=== PATIENT | male | born 1990 | race Caucasian/White ===

== ENCOUNTER 2023-07-28 03:42 | Emergency (ER) | payer OTHER ==
[2023-07-28 04:03] VITALS: BP 145/103; PULSE 115; RESP 20; TEMP 98.1
--- NOTE | 2023-07-28 04:05 | ED ---
Wound/Laceration HPI - General Chief Complaint: Wound/Laceration Stated Complaint: Chin Laceration Time Seen by Provider: 07/28/23 04:04 Source: police Mode of arrival: ambulatory Limitations: no limitations - History of Present Illness Initial Comments: This patient is 33-year-old man who presents to evaluation of laceration to the chin. Patient states that he had rolled out of the bunk at the assisted where he is currently staying. He struck his chin resulting in laceration. The patient states that his last tetanus shot was probably less than 10 years ago. He denies aches and pains. No other injury. -: hour(s) Location: face Place: other Patient Tetanus UTD: Yes Context: accidental, fall Associated Symptoms: none Treatments Prior to Arrival: bandage - Related Data Previous Rx's Medication Instructions Recorded Thiamine [Vitamin B-1] 100 mg PO DAILY #90 tab 08/01/23 Allergies Allergy/AdvReac Type Severity Reaction Status Date / Time No Known Allergies Allergy Verified 07/31/23 19:43 Review of Systems ROS Statement: Those systems with pertinent positive or pertinent negative responses have been documented in the HPI. ROS Other: All systems not noted in ROS Statement are negative. Respiratory: Denies: dyspnea Cardiovascular: Denies: chest pain Gastrointestinal: Denies: abdominal pain Skin: Reports: as per HPI Neurological: Denies: headache Hematological/Lymphatic: Denies: easy bleeding Past Medical History Past Medical History: No Reported History History of Any Multi-Drug Resistant Organisms: None Reported Past Surgical History: No Surgical Hx Reported Past Psychological History: No Psychological Hx Reported Smoking Status: Never smoker Past Alcohol Use History: Occasional Past Drug Use History: None Reported General Exam Limitations: no limitations General appearance: alert, in no apparent distress Head exam: Present: atraumatic, normocephalic Eye exam: Present: normal appearance, PERRL, EOMI. Absent: scleral icterus, conjunctival injection ENT exam: Present: normal oropharynx Neck exam: Present: normal inspection, full ROM. Absent: tenderness Neurological exam: Present: alert, oriented X3 Skin exam: Present: warm, dry, normal color, other (The patient has approximately 2 cm laceration to the underside of the chin to the right of midline. No foreign body.) Course Vital Signs 07/28/23 03:43 Temperature 98.1 F Pulse Rate 115 H Respiratory 20 Rate Blood Pressure 145/103 O2 Sat by Pulse 96 Oximetry Procedures - Laceration Laceration #1 Consent Obtained: verbal consent Indication: laceration Site: face Size (cm): 2 Description: flap Depth: simple, single layer Anesthetic Used: lidocaine 1% Anesthesia Technique: local infiltration Amount (mls): 2 Type of Sutures: nylon Size of Sutures: 6-0 Number of Sutures: 3 Technique: simple, interrupted Patient Tolerated Procedure: well, no complications Medical Decision Making - Medical Decision Making Was pt. sent in by a medical professional or institution (, PA, ADJUNCT INSTRUCTOR, urgent care, hospital, or snf...) When possible be specific @ -[No] Did you speak to anyone other than the patient for history (EMS, parent, family, police, friend...)? What history was obtained from this source @ -[No] Did you review nursing and triage notes (agree or disagree)? Why? @ -[I reviewed and agree with nursing and triage notes] Were old charts reviewed (outside hosp., previous admission, EMS record, old EKG, old radiological studies, urgent care reports/EKG's, snf records)? Report findings @ -[No old charts were reviewed] Differential Diagnosis (chest pain, altered mental status, abdominal pain women, abdominal pain men, vaginal bleeding, weakness, fever, dyspnea, syncope, headache, dizziness, GI bleed, back pain, seizure, CVA, palpatations, mental health, musculoskeletal)? @ -[Differential Musculoskeletal Muscular strain, contusion, ligament sprain, fracture, arthritis, septic arthritis, bursitis, cellulitis, muscle spasm, nerve compression, DVT, arterial occlusion, herpes zoster, electrolyte abnormality, tumor.... This is not meant to be in all inclusive list EKG interpreted by me (3pts min.). @ -[As above] X-rays interpreted by me (1pt min.). @ -[None done] CT interpreted by me (1pt min.). @ -[None done] U/S interpreted by me (1pt. min.). @ -[None done] What testing was considered but not performed or refused? (CT, X-rays, U/S, labs)? Why? @ -[None] What meds were considered but not given or refused? Why? @ -[None] Did you discuss the management of the patient with other professionals (professionals i.e. , PA, ADJUNCT INSTRUCTOR, lab, RT, psych nurse, sexual assault social worker, wire rope sales representative, teacher, foreign service officer, manager case management)? Give summary @ -[No] Was smoking cessation discussed for >3mins.? @ -[No] Was critical care preformed (if so, how long)? @ -[No] Were there social determinants of health that impacted care today? How? (Homelessness, low income, unemployed, alcoholism, drug addiction, transportation, low edu. Level, literacy, decrease access to med. care, assisted, rehab)? @ -[No] Was there de-escalation of care discussed even if they declined (Discuss DNR or withdrawal of care, Hospice)? DNR status @ -[No] What co-morbidities impacted this encounter? (DM, HTN, Smoking, COPD, CAD, Cancer, CVA, ARF, Chemo, Hep., AIDS, mental health diagnosis, sleep apnea, morbid obesity)? @ -[None] Was patient admitted / discharged? Hospital course, mention meds given and route, prescriptions, significant lab abnormalities, going to OR and other pertinent info. @ -[hospital course] Undiagnosed new problem with uncertain prognosis? @ -[No] Drug Therapy requiring intensive monitoring for toxicity (Heparin, Nitro, Insulin, Cardizem)? @ -[No] Were any procedures done? @ -[Laceration repair as above Diagnosis/symptom? @ -[Acute chin laceration with suture repair Minor head trauma Hypertension Acute, or Chronic, or Acute on Chronic? @ -[Acute Uncomplicated (without systemic symptoms) or Complicated (systemic symptoms)? @ -[Uncomplicated Side effects of treatment? @ -[No] Exacerbation, Progression, or Severe Exacerbation? @ -[No] Poses a threat to life or bodily function? How? (Chest pain, [place], [place], pneumonia, PE, COPD, DKA, ARF, appy, cholecystitis, CVA, Diverticulitis, Homicidal, Suicidal, threat to staff... and all critical care pts) @ -[No] Disposition Clinical Impression: Laceration, Hypertension, Minor head trauma Disposition: HOME SELF-CARE Condition: Stable Instructions (If sedation given, give patient instructions): Laceration (ED), Hypertension (ED) Additional Instructions: Suture removal in 7 to 10 days Is patient prescribed a controlled substance at d/c from ED?: No Referrals: [facility],Clinic [Primary Care Provider] - 1-2 days
[2023-07-28] MEDS: BACITRACIN OINT 1 EACH PACKET TOPICAL ONE (04:42)
== END 2023-07-28 05:36 | disposition home or self-care (01) ==
LOC: EC 03:42
DX: S01.81XA Laceration without foreign body of other part of head, initial encounter (principal); I10 Essential (primary) hypertension; W17.89XA Other fall from one level to another, initial encounter; Y92.149 Unspecified place in prison as the place of occurrence of the external cause
CPT/HCPCS: 12011; 99282

== ENCOUNTER 2023-07-31 15:07 | Inpatient (IN) | payer OTHER ==
[2023-07-31] MEDS ORDERED: LORazepam 1 MG TAB PO PRN ×3 (16:15)
[2023-07-31] MEDS ORDERED: LORazepam 0.5 MG TAB PO PRN (16:15)
--- NOTE | 2023-07-31 16:41 | ED ---
Alcohol HPI - General Chief Complaint: Alcohol Stated Complaint: Withdraws Time Seen by Provider: 07/31/23 16:38 Source: patient, RN notes reviewed Mode of arrival: ambulatory Limitations: no limitations - History of Present Illness Initial Comments: Patient is a 33-year-old male presented to ER with a chief complaint of alcohol withdrawals. Family, at bedside, providing most of past medical history and HPI. They report he has been drinking 7-10 beers a day for the past 7 to 9 years. He reports his last drink was about 4 days ago. Denies any history of seizures or DTs with withdrawals. Patient is also reporting hallucinations and difficulty sleeping. Denies any SI or HI. Family states they are worried he could have a possible seizure at home and would like him to be evaluated. Denies any fevers, chills, nausea/vomiting, chest pain, shortness of breath, abdominal pain, constipation, diarrhea, urinary symptoms, peripheral edema. - Related Data Home Medications Medication Instructions Recorded Confirmed No Known Home Medications 07/31/23 07/31/23 Allergies Allergy/AdvReac Type Severity Reaction Status Date / Time No Known Allergies Allergy Verified 07/31/23 19:43 Review of Systems ROS Statement: Those systems with pertinent positive or pertinent negative responses have been documented in the HPI. ROS Other: All systems not noted in ROS Statement are negative. Past Medical History Past Medical History: No Reported History History of Any Multi-Drug Resistant Organisms: None Reported Past Surgical History: No Surgical Hx Reported Past Psychological History: No Psychological Hx Reported Smoking Status: Never smoker Past Alcohol Use History: Daily Past Drug Use History: None Reported General Exam Limitations: no limitations General appearance: alert, in no apparent distress, anxious, other (patient pacing room when provider entered) Head exam: Present: atraumatic, normocephalic, normal inspection Eye exam: Present: normal appearance, PERRL, EOMI. Absent: scleral icterus, conjunctival injection, periorbital swelling Respiratory exam: Present: normal lung sounds bilaterally. Absent: respiratory distress, wheezes, rales, rhonchi, stridor Cardiovascular Exam: Present: regular rate, normal rhythm, normal heart sounds. Absent: systolic murmur, diastolic murmur, rubs, gallop, clicks GI/Abdominal exam: Present: soft, normal bowel sounds. Absent: distended, tenderness, guarding, rebound, rigid Neurological exam: Present: alert, oriented X3, CN II-XII intact, other (Mild tremor) Psychiatric exam: Present: anxious Skin exam: Present: warm, dry, intact, normal color. Absent: rash Course Vital Signs 07/31/23 15:11 Temperature 98.1 F Pulse Rate 63 Respiratory 18 Rate Blood Pressure 141/90 O2 Sat by Pulse 99 Oximetry - Reevaluation(s) Reevaluation #1: 07/31/23 19:[address] Norman who accepted medical management. She also reported patient should be admitted inpatient. Medical Decision Making - Medical Decision Making Was pt. sent in by a medical professional or institution (, PA, COMMUNITY SERVICES MANAGER, urgent care, hospital, or fdc...) When possible be specific @ -No Did you speak to anyone other than the patient for history (EMS, parent, family, police, friend...)? What history was obtained from this source @ -Mother providing past medical history Did you review nursing and triage notes (agree or disagree)? Why? @ -I reviewed and agree with nursing and triage notes Were old charts reviewed (outside hosp., previous admission, EMS record, old EKG, old radiological studies, urgent care reports/EKG's, fdc records)? Report findings @ -No old charts were reviewed Differential Diagnosis (chest pain, altered mental status, abdominal pain women, abdominal pain men, vaginal bleeding, weakness, fever, dyspnea, syncope, headache, dizziness, GI bleed, back pain, seizure, CVA, palpatations, mental health, musculoskeletal)? @ -Differential Seizure:Recurrent seizure disorder, febrile seizure, alcohol withdrawal, stimulants, meningitis, encephalitis, intercranial hemorrhage, intracranial tumor, stroke, eclampsia, thyrotoxicosis, hypocalcemia, hyponatremia, hypernatremia, hypomagnesemia, psychogenic, this is not meant to be an all-inclusive list. EKG interpreted by me (3pts min.). @ -As above X-rays interpreted by me (1pt min.). @ -None done CT interpreted by me (1pt min.). @ -None done U/S interpreted by me (1pt. min.). @ -None done What testing was considered but not performed or refused? (CT, X-rays, U/S, labs)? Why? @ -None What meds were considered but not given or refused? Why? @ -None Did you discuss the management of the patient with other professionals (professionals i.e. , LEI, COMMUNITY SERVICES MANAGER, lab, RT, psych nurse, social science research assistant, online communications manager, teacher, global safety officer, piano case and bench assembler)? Give summary @ -Yes, I discussed his case with Dr. Norman, artis physician, who accepted medical management. Patient will be admitted inpatient. Was smoking cessation discussed for >3mins.? @ -No Was critical care preformed (if so, how long)? @ -No Were there social determinants of health that impacted care today? How? (Homelessness, low income, unemployed, alcoholism, drug addiction, transportation, low edu. Level, literacy, decrease access to med. care, snf, rehab)? @ -Alcoholism, Was there de-escalation of care discussed even if they declined (Discuss DNR or withdrawal of care, Hospice)? DNR status @ -No What co-morbidities impacted this encounter? (DM, HTN, Smoking, COPD, CAD, Cancer, CVA, ARF, Chemo, Hep., AIDS, mental health diagnosis, sleep apnea, morbid obesity)? @ -Alcoholism, mental health Was patient admitted / discharged? Hospital course, mention meds given and route, prescriptions, significant lab abnormalities, going to OR and other pertinent info. @ -Admitted. Patient is a 33 year old male presenting to the ER with a chief complaint of alcohol withdrawal. Patient stopped drinking 4 days ago he was consuming 7-10 beers for the past 7-9 years. History and physical exam were completed. Vitals stable. Patient was in no signs of acute distress. Patient was pacing in exam room on exam and was mildly shaking. Patient without history of seizures or DTs. Labs obtained in the ER unimpressive. Urinalysis without signs of infection. Urine drug screen negative. Serum alcohol less than 10. CIWA protocol started. Patient given PO thiamine and IV fluids. EKG without signs of acute infarct or ischemia. Due to patient's CIWA at 14 patient received 2 mg Ativan. Admission was considered due to CIWA of 14. Case discussed with artis Little physician, who excepted medical management. Patient will be admitted inpatient. Plan discussed with patient and family who are in agreement with admission. Undiagnosed new problem with uncertain prognosis? @ -No Drug Therapy requiring intensive monitoring for toxicity (Heparin, Nitro, Insulin, Cardizem)? @ -No Were any procedures done? @ -No Diagnosis/symptom? @ -Alcohol withdrawal Acute, or Chronic, or Acute on Chronic? @ -Acute Uncomplicated (without systemic symptoms) or Complicated (systemic symptoms)? @ -Complicated Side effects of treatment? @ -No Exacerbation, Progression, or Severe Exacerbation? @ -No Poses a threat to life or bodily function? How? (Chest pain, [place], [place], pneumonia, PE, COPD, DKA, ARF, appy, cholecystitis, CVA, Diverticulitis, Homicidal, Suicidal, threat to staff... and all critical care pts) @ -Yes, alcohol withdrawal can lead to seizures which can be life-threatening. - Lab Data Result diagrams: 07/31/23 17:03 07/31/23 17:03 Lab Results 07/31/23 07/31/23 07/31/23 Range/Units 17:03 17:03 17:03 WBC 8.9 (3.8-10.6) k/uL RBC 5.23 (4.30-5.90) m/uL Hgb 17.0 (13.0-17.5) gm/dL Hct 49.5 (39.0-53.0) % MCV 94.7 (80.0-100.0) fL MCH 32.5 (25.0-35.0) pg MCHC 34.3 (31.0-37.0) g/dL RDW 12.3 (11.5-15.5) % Plt Count 274 (150-450) k/uL MPV 7.8 Sodium 140 (137-145) mmol/L Potassium 3.5 (3.5-5.1) mmol/L Chloride 99 (98-107) mmol/L Carbon Dioxide 29 (22-30) mmol/L Anion Gap 12 mmol/L BUN 13 (9-20) mg/dL Creatinine 0.90 (0.66-1.25) mg/dL Est GFR (CKD-EPI)AfAm >90 (>60 ml/min/1.73 sqM) Est GFR (CKD-EPI)NonAf >90 (>60 ml/min/1.73 sqM) Glucose 108 H (74-99) mg/dL Calcium 10.1 (8.4-10.2) mg/dL Phosphorus 4.5 (2.5-4.5) mg/dL Magnesium 2.2 (1.6-2.3) mg/dL Total Bilirubin 3.0 H (0.2-1.3) mg/dL AST 44 (17-59) U/L ALT 47 (4-49) U/L Alkaline Phosphatase 75 (38-126) U/L Total Protein 8.2 (6.3-8.2) g/dL Albumin 5.2 H (3.5-5.0) g/dL Urine Color Yellow Urine Appearance Cloudy (Clear) Urine pH 5.5 (5.0-8.0) Ur Specific [place] 1.034 (1.001-1.035) Urine Protein Trace H (Negative) Urine Glucose (UA) Negative (Negative) Urine Ketones Negative (Negative) Urine Blood Negative (Negative) Urine Nitrite Negative (Negative) Urine Bilirubin Negative (Negative) Urine Urobilinogen 2.0 (<2.0) mg/dL Ur Leukocyte Esterase Moderate H (Negative) Urine RBC 1 (0-5) /hpf Urine WBC 25 H (0-5) /hpf Ur Squamous Epith Cells 1 (0-4) /hpf Urine Mucus Few H (None) /hpf Urine Opiates Screen Not Detected (NotDetected) Ur Oxycodone Screen Not Detected (NotDetected) Urine Methadone Screen Not Detected (NotDetected) Ur Barbiturates Screen Not Detected (NotDetected) U Tricyclic Antidepress Not Detected (NotDetected) Ur Phencyclidine Scrn Not Detected (NotDetected) Ur Amphetamines Screen Not Detected (NotDetected) U Methamphetamines Scrn Not Detected (NotDetected) U Benzodiazepines Scrn Not Detected (NotDetected) Urine Cocaine Screen Not Detected (NotDetected) U Marijuana (THC) Screen Not Detected (NotDetected) Serum Alcohol <10 mg/dL - EKG Data -: EKG Interpreted by Me EKG Comments: EKG taken at 17: 22 shows a normal sinus rhythm. No acute ST segment or T wave abnormalities. There is artifact present in leads I, II, III. Ventricular rate 62, CA interval 131, QRS duration 95, QT/QTc 414/419. Disposition Clinical Impression: Alcohol withdrawal Disposition: ADMITTED IP TO THIS [facility] Time of Disposition: 18:10
[2023-07-31 17:12] LABS: HCT 49.5 % (39.0-53.0); MCH 32.5 pg (25.0-35.0); MCHC 34.3 g/dL (31.0-37.0); MCV 94.7 fL (80.0-100.0); Mean Platelet Volume 7.8; Platelet Count 274 k/uL (150-450); RBC 5.23 m/uL (4.30-5.90); RDW 12.3 % (11.5-15.5); WBC 8.9 k/uL (3.8-10.6)
[2023-07-31] MEDS: LORazepam 1 MG TAB PO PRN (17:12)
[2023-07-31] MEDS: SODIUM CHLORIDE 0.9% 1,000 ML IV STA (17:12)
[2023-07-31 17:26] LABS: ALT 47 U/L (4-49); AST 44 U/L (17-59); African American GFR (CKD) >90 (>60 ml/min/1.73 sqM); Albumin 5.2 g/dL (3.5-5.0); Alcohol <10 mg/dL; Alkaline Phosphatase 75 U/L (38-126); Anion Gap 12 mmol/L; Blood Urea Nitrogen 13 mg/dL (9-20); Calcium 10.1 mg/dL (8.4-10.2); Carbon Dioxide 29 mmol/L (22-30); Chloride 99 mmol/L (98-107); Glucose 108 mg/dL (74-99); Magnesium 2.2 mg/dL (1.6-2.3); Non-African American GFR(CKD) >90 (>60 ml/min/1.73 sqM); Phosphorus 4.5 mg/dL (2.5-4.5); Potassium 3.5 mmol/L (3.5-5.1); Sodium 140 mmol/L (137-145); Total Protein 8.2 g/dL (6.3-8.2)
[2023-07-31 17:27] LABS: Appearance,Urine Cloudy (Clear); Bilirubin,Urine Negative (Negative); Blood,Urine Negative (Negative); Color,Urine Yellow; Glucose,Urine (UA) Negative (Negative); Ketones,Urine Negative (Negative); Leukocyte Esterase,Urine Moderate (Negative); Mucus,Urine Few /hpf; Nitrite,Urine Negative (Negative); PH, Urine 5.5 (5.0-8.0); Protein,Urine Trace (Negative); RBC,Urine 1 /hpf (0-5); Specific Gravity,Urine 1.034 (1.001-1.035); Squamous Epithelial Cell,Urine 1 /hpf (0-4); WBC,Urine 25 /hpf (0-5)
[2023-07-31 17:37] LABS: Amphetamine Screen,Urine Not Detected (NotDetected); Barbiturate Screen,Urine Not Detected (NotDetected); Benzodiazepines Screen,Urine Not Detected (NotDetected); Cocaine Screen,Urine Not Detected (NotDetected); Methadone Screen, Urine Not Detected (NotDetected); Opiate Screen,Urine Not Detected (NotDetected); Oxycodone Screen, Urine Not Detected (NotDetected); Phencyclidine Screen,Urine Not Detected (NotDetected); Tricyclic Antidepressant,Urine Not Detected (NotDetected); Urn Cannabinoid Scrn Not Detected (NotDetected)
[2023-07-31] MEDS ORDERED: LORazepam 2 MG/ML INJ IV PRN ×2 (17:38→17:40)
[2023-07-31] MEDS: THIAMINE 100 MG/ML 2 ML VIAL IM STA (18:00)
[2023-07-31] MEDS ORDERED: ACETAMINOPHEN TAB 325 MG TAB PO PRN (18:09)
[2023-07-31] MEDS ORDERED: NALOXONE 0.4 MG/ML 1 ML VIAL IV PRN (18:09)
[2023-07-31] MEDS: SODIUM CHLORIDE 0.9% 1,000 ML IV SCH (19:33)
[2023-07-31 20:55] VITALS: RESP 16
[2023-07-31] MEDS: LORazepam 2 MG/ML INJ IV PRN (22:52)
--- NOTE | 2023-07-31 22:58 | P.HPIM ---
History of Present Illness H&P Date: 07/31/23 Patient is a 33-year-old male with a PMH of alcohol abuse and DTs who presents to the emergency room brought in by family members for alcohol withdrawal. The history was supplemented from the chart as the patient was somewhat confused at the time of interview. The patient's family had reported that he has been drinking 7-10 beers daily for the past 9 years. He had reportedly been trying to cut down and that his last drink was 4 days ago. He was reported to be hallucinating, having difficulty sleeping, and that the family was worried he could develop seizures. The patient reports that he previously had DTs with withdrawals several years ago but does not recall the specifics. He reported feeling somewhat shaky at the time of interview but had no additional complaints. Denied experiencing chest discomfort, shortness of breath, fever, chills, cough, nausea, vomiting, abdominal pain, diarrhea. EKG in the emergency room revealed sinus rhythm at [address]/T wave changes noted as reviewed by me. Laboratory evaluation revealed a serum alcohol level less than 10 with UA unremarkable, glucose 108, total bilirubin 3.0, albumin 5.2, WBC count 8.9, hemoglobin 17.0. ED documentation reviewed and case discussed with ED provider. Review of systems: Pertinent positives and negatives as discussed in HPI, a complete review of systems was performed and all other systems are negative. Physical examination: Vital signs reviewed General: non toxic tremulous male, no distress, appears at stated age, normal weight Derm: no unusual rashes/lesions, warm Head: atraumatic, normocephalic, symmetric Eyes: EOMI, no lid lag, anicteric sclera, pupils equal round reactive to light ENT: Nose and ears atraumatic Neck: No cervical lymphadenopathy, trachea midline, supple Mouth: no lip lesion, mucus membranes moist, tongue fasciculations Cardiovascular: S1S2 reg, no murmur, positive dorsalis pedis pulse bilateral, no edema Lungs: CTA bilateral, no rhonchi, no rales, no accessory muscle use Abdominal: soft, nontender to palpation, no guarding Ext: muscle strength 5 out of 5 in all 4 extremities grossly, no gross muscle atrophy, no contractures, Neuro: CN II-XI grossly intact, no gross focal neuro deficits, tremulous with outstretched hand tremor Psych: Alert, oriented to person and place only, not fully oriented to time Assessment: Alcohol withdrawal Imaging: EKG in the emergency room revealed sinus rhythm at [address]/T wave changes noted as reviewed by me. Data Review: Laboratory evaluation revealed a serum alcohol level less than 10 with UA unremarkable, glucose 108, total bilirubin 3.0, albumin 5.2, WBC count 8.9, hemoglobin 17.0. Plan: Ativan as needed with CIWA protocol Continue with thiamine IV fluids with normal saline 75 cc/h Cardiac monitoring Fall precautions DVT prophylaxis: Lovenox subcu The patient is admitted with an anticipated greater than 2 midnight stay for evaluation of alcohol withdrawal CODE STATUS: Full Code Discussed with: Patient Anticipated discharge place: Home Past Medical History Past Medical History: No Reported History History of Any Multi-Drug Resistant Organisms: None Reported Past Surgical History: No Surgical Hx Reported Additional Past Surgical History / Comment(s): Patient states he broke collar bone as a child. Past Anesthesia/Blood Transfusion Reactions: Unable to Obtain Past Psychological History: ADD/ADHD, Anxiety, Depression Smoking Status: Former smoker Past Alcohol Use History: Daily Additional Past Alcohol Use History / Comment(s): 7 beers daily for 2 weeks. Past Drug Use History: None Reported - Past Family History Mother Family Medical History: COPD Medications and Allergies Home Medications Medication Instructions Recorded Confirmed Type No Known Home Medications 07/31/23 07/31/23 History Allergies Allergy/AdvReac Type Severity Reaction Status Date / Time No Known Allergies Allergy Verified 07/31/23 19:43 Physical Exam Vitals: Vital Signs Temp Pulse Pulse Resp BP BP Pulse Ox 07/31/23 21:21 98.2 F 76 16 119/78 100 07/31/23 20:40 98.4 F 70 16 129/79 100 07/31/23 15:11 98.1 F 63 18 141/90 99 Intake and Output 07/31/23 07/31/23 07/31/23 06:59 14:59 22:59 Other: Weight 74.843 kg Results CBC & Chem 7: 07/31/23 17:03 07/31/23 17:03 Labs: Abnormal Lab Results - Last 24 Hours (Table) 07/31/23 07/31/23 Range/Units 17:03 17:03 Glucose 108 H (74-99) mg/dL Total Bilirubin 3.0 H (0.2-1.3) mg/dL Albumin 5.2 H (3.5-5.0) g/dL Urine Protein Trace H (Negative) Ur Leukocyte Esterase Moderate H (Negative) Urine WBC 25 H (0-5) /hpf Urine Mucus Few H (None) /hpf
[2023-08-01 07:03] LABS: HCT 41.3 % (39.0-53.0); HGB 14.1 gm/dL (13.0-17.5); MCH 32.7 pg (25.0-35.0); MCHC 34.2 g/dL (31.0-37.0); MCV 95.4 fL (80.0-100.0); Mean Platelet Volume 7.8; Platelet Count 217 k/uL (150-450); RBC 4.33 m/uL (4.30-5.90); RDW 12.2 % (11.5-15.5); WBC 5.4 k/uL (3.8-10.6)
[2023-08-01 07:35] LABS: African American GFR (CKD) >90 (>60 ml/min/1.73 sqM); Anion Gap 4 mmol/L; Blood Urea Nitrogen 10 mg/dL (9-20); Calcium 8.7 mg/dL (8.4-10.2); Carbon Dioxide 27 mmol/L (22-30); Chloride 107 mmol/L (98-107); Glucose 98 mg/dL (74-99); Non-African American GFR(CKD) >90 (>60 ml/min/1.73 sqM); Potassium 4.1 mmol/L (3.5-5.1); Sodium 138 mmol/L (137-145)
[2023-08-01 07:48] VITALS: BP 113/77; PULSE 66; TEMP 97.5
[2023-08-01] MEDS: ENOXAPARIN 40 MG/0.4 ML SYRINGE SQ SCH (08:23)
[2023-08-01] MEDS: THIAMINE 100 MG TAB PO SCH (08:23)
[2023-08-01 08:51] VITALS: BMI 21.7
--- NOTE | 2023-08-01 11:18 | P.DS ---
Providers Date of admission: 07/31/23 18:13 Expected date of discharge: 08/01/23 Attending physician: Clarisa Butt DO Primary care physician: [facility] Hospital Course: Discharge Diagnosis: Alcohol dependence Alcohol withdrawal Hospital Course: 33-year-old male with a PMH of alcohol abuse and DTs who presents to the emergency room brought in by family members for alcohol withdrawal. EKG in the emergency room revealed sinus rhythm at [address]/T wave changes. Laboratory evaluation revealed a serum alcohol level less than 10 with UA unremarkable, glucose 108, total bilirubin 3.0, albumin 5.2, WBC count 8.9, hemoglobin 17.0. He drinks about 5-6 beers daily. According to him, he has been drinking daily for the last 2 years. He has not been to any alcoholic rehab before. He is planning on calling one of the outpatient alcohol rehab places. He will follow-up with his PCP. Patient seen and examined at bedside. Vital signs reviewed and stable. General: Nontoxic, no distress, appears at stated age Derm: Warm, dry Head: Atraumatic, normocephalic, symmetric Eyes: EOMI, no lid lag, anicteric sclera Mouth: No lip lesion, mucus membranes moist Cardiovascular: S1S2 reg, no murmur Lungs: CTA bilateral, no rhonchi, no rales, no accessory muscle use Abdominal: Soft, nontender to palpation, no guarding, no appreciable organomegaly Ext: No gross muscle atrophy, no edema, no contractures Neuro: CN II-XI grossly intact, no focal neuro deficits Psych: Alert, oriented, appropriate affect A total of 33 minutes of time were spent preparing this complex discharge summary. Patient was discharged on 08/01/23 at 1020. . Patient Condition at Discharge: Stable Plan - Discharge Summary Discharge Rx Participant: Yes New Discharge Prescriptions: New Thiamine [Vitamin B-1] 100 mg PO DAILY #90 tab Discharge Medication List Thiamine [Vitamin B-1] 100 mg PO DAILY #90 tab 08/01/23 [Rx] Follow up Appointment(s)/Referral(s): [facility],Clinic [Primary Care Provider] - 1-2 days (Please make follow up appointment.) Patient Instructions/Handouts: Alcohol Withdrawal (DC), Alcohol Dependence (ED) Activity/Diet/Wound Care/Special Instructions: Please see your PCP. Discharge/Stand Alone Forms: AA Meetings [facility], Who Do I Call?, Community Resources, Outpatient Counseling, In Substance Abuse Facilities Discharge Disposition: HOME SELF-CARE
== END 2023-08-01 11:34 | disposition home or self-care (01) | DRG 897 ==
LOC: EC 15:07 → 5NMEDONC 18:13
PROVIDERS: ADMIT Internal Medicine; ATTEND Internal Medicine
DX: F10.231 Alcohol dependence with withdrawal delirium (principal); F32.A Depression, unspecified; Y90.0 Blood alcohol level of less than 20 mg/100 ml; F41.9 Anxiety disorder, unspecified; F90.9 Attention-deficit hyperactivity disorder, unspecified type; G47.9 Sleep disorder, unspecified; Z71.41 Alcohol abuse counseling and surveillance of alcoholic; Z87.891 Personal history of nicotine dependence
CPT/HCPCS: 36415; 80048; 80053; 80306; 80320; 81001; 83735; 84100; 85027; 87086; 93005

== ENCOUNTER 2025-01-15 10:36 | Emergency (ER) | payer OTHER ==
--- NOTE | 2025-01-15 11:08 | ED ---
General Adult HPI - General Chief complaint: Psychiatric Symptoms Stated complaint: Mental health eval Time Seen by Provider: 01/15/25 10:48 Source: patient, family, RN notes reviewed Mode of arrival: ambulatory Limitations: no limitations - History of Present Illness Initial comments: Patient is a 34-year-old male presenting to the emergency department with psychiatric concerns over the past couple of days. Patient is having some racing thoughts. Patient is not sleeping. Patient is hearing his brother's voice through speakers. Patient is concerned his phone is tapped. Patient did have similar symptoms with alcohol withdrawal. Around 18 months ago however. No other similar symptoms. Patient denies any recent alcohol use. No suicidal or homicidal thoughts. - Related Data Previous Rx's Medication Instructions Recorded Thiamine [Vitamin B-1] 100 mg PO DAILY #90 tab 08/01/23 hydrOXYzine pamoate [Vistaril] 50 mg PO HS #10 capsule 01/15/25 Allergies Allergy/AdvReac Type Severity Reaction Status Date / Time No Known Allergies Allergy Verified 01/15/25 10:46 Review of Systems ROS Statement: Those systems with pertinent positive or pertinent negative responses have been documented in the HPI. ROS Other: All systems not noted in ROS Statement are negative. Constitutional: Denies: fever Eyes: Denies: eye pain Respiratory: Denies: dyspnea Cardiovascular: Reports: palpitations Musculoskeletal: Denies: back pain Psychiatric: Reports: as per HPI, auditory hallucinations. Denies: visual hallucinations, homicidal thoughts, suicidal thoughts Past Medical History Past Medical History: No Reported History History of Any Multi-Drug Resistant Organisms: None Reported Past Surgical History: No Surgical Hx Reported Additional Past Surgical History / Comment(s): Patient states he broke collar bone as a child. Past Anesthesia/Blood Transfusion Reactions: Unable to Obtain Past Psychological History: ADD/ADHD, Anxiety, Depression Smoking Status: Former smoker Past Alcohol Use History: Daily Past Drug Use History: None Reported - Past Family History Mother Family Medical History: COPD General Exam Limitations: no limitations General appearance: alert Head exam: Present: normocephalic Eye exam: Present: normal appearance Neck exam: Present: normal inspection Respiratory exam: Present: normal lung sounds bilaterally Cardiovascular Exam: Present: regular rate, normal rhythm GI/Abdominal exam: Present: soft. Absent: tenderness Extremities exam: Present: normal inspection Neurological exam: Present: alert Psychiatric exam: Present: anxious Skin exam: Present: normal color Course Vital Signs 01/15/25 10:42 Temperature 97.8 F Pulse Rate 91 Respiratory 18 Rate Blood Pressure 104/71 O2 Sat by Pulse 98 Oximetry Medical Decision Making - Medical Decision Making Was pt. sent in by a medical professional or institution (, [facility], STORAGE AND BACKUP ADMINISTRATOR, urgent care, hospital, or prison...) When possible be specific @ -No Did you speak to anyone other than the patient for history (EMS, parent, family, police, friend...)? What history was obtained from this source @ -Aunt is present helps provide history including patient's symptoms and onset Did you review nursing and triage notes (agree or disagree)? Why? @ -I reviewed and agree with nursing and triage notes Were old charts reviewed (outside hosp., previous admission, EMS record, old EKG, old radiological studies, urgent care reports/EKG's, prison records)? Report findings @ -No old charts were reviewed Differential Diagnosis (chest pain, altered mental status, abdominal pain women, abdominal pain men, vaginal bleeding, weakness, fever, dyspnea, syncope, headache, dizziness, GI bleed, back pain, seizure, CVA, palpatations, mental h ealth, musculoskeletal)? @ -Differential Mental Health Depression, anxiety, bipolar, psychosis, schizophrenia, borderline personality, situational depression, adjustment disorder, behavioral disorder, brain tumor, malingering, substance abuse, encephalopathy, medication reaction, dementia, hypothyroidism, degenerative neurologic disorder, lupus.... This is not meant to be all-inclusive list EKG interpreted by me (3pts min.). @ -As above X-rays interpreted by me (1pt min.). @ -None done CT interpreted by me (1pt min.). @ -None done U/S interpreted by me (1pt. min.). @ -None done What testing was considered but not performed or refused? (CT, X-rays, U/S, labs)? Why? @ -None What meds were considered but not given or refused? Why? @ -None Did you discuss the management of the patient with other professionals (professionals i.e. [facility] Serra, STORAGE AND BACKUP ADMINISTRATOR, lab, RT, psych nurse, social media marketing manager, agricultural chemist, teacher, correction officer penitentiary, embedded case manager)? Give summary @ -Case was discussed with mental health social media marketing manager who did discuss with psychiatrist with plans for discharge. Was smoking cessation discussed for >3mins.? @ -No Was critical care preformed (if so, how long)? @ -No Were there social determinants of health that impacted care today? How? (Homelessness, low income, unemployed, alcoholism, drug addiction, transportation, low edu. Level, literacy, decrease access to med. care, nursing home, rehab)? @ -No Was there de-escalation of care discussed even if they declined (Discuss DNR or withdrawal of care, Hospice)? DNR status @ -No What co-morbidities impacted this encounter? (DM, HTN, Smoking, COPD, CAD, Cancer, CVA, ARF, Chemo, Hep., AIDS, mental health diagnosis, sleep apnea, morbid obesity)? @ -None Was patient admitted / discharged? Hospital course, mention meds given and route, prescriptions, significant lab abnormalities, going to OR and other pertinent info. @ -Patient presents with anxiety and difficulty sleeping and some hallucinations. Patient will be discharged with mental health follow-up. Patient reevaluated. Patient updated. Undiagnosed new problem with uncertain prognosis? @ -No Drug Therapy requiring intensive monitoring for toxicity (Heparin, Nitro, Insulin, Cardizem)? @ -No Were any procedures done? @ -No Diagnosis/symptom? @ -Anxiety, hallucinations Acute, or Chronic, or Acute on Chronic? @ -Acute, acute Uncomplicated (without systemic symptoms) or Complicated (systemic symptoms)? @ -Default Side effects of treatment? @ -No Exacerbation, Progression, or Severe Exacerbation? @ -No Poses a threat to life or bodily function? How? (Chest pain, USA, SD, pneumonia, PE, COPD, DKA, ARF, appy, cholecystitis, CVA, Diverticulitis, Homicidal, Suicidal, threat to staff... and all critical care pts) @ -No - Lab Data Lab Results 01/15/25 Range/Units 11:25 Urine Opiates Screen Not Detected (NotDetected) Ur Oxycodone Screen Not Detected (NotDetected) Urine Methadone Screen Not Detected (NotDetected) Ur Barbiturates Screen Not Detected (NotDetected) U Tricyclic Antidepress Not Detected (NotDetected) Ur Phencyclidine Scrn Not Detected (NotDetected) Ur Amphetamines Screen Not Detected (NotDetected) U Methamphetamines Scrn Not Detected (NotDetected) U Benzodiazepines Scrn Not Detected (NotDetected) Urine Cocaine Screen Not Detected (NotDetected) U Marijuana (THC) Screen Not Detected (NotDetected) Disposition Clinical Impression: Acute anxiety Disposition: HOME SELF-CARE Condition: Stable Instructions (If sedation given, give patient instructions): Hallucinations (ED), Anxiety (ED) Additional Instructions: Prescription sent to pharmacy. Please do follow-up with your primary care physician in the next day or 2 for recheck. Please follow-up with mental health services as directed. Return for thoughts of self-harm, worsening symptoms or other concerns. Prescriptions: hydrOXYzine pamoate [Vistaril] 50 mg PO HS #10 capsule Is patient prescribed a controlled substance at d/c from ED?: No Referrals: Mauricio Willingham DO [Primary Care Provider] - 1-2 days Time of Disposition: 13:25
[2025-01-15 12:20] LABS: Barbiturate Screen,Urine Not Detected (NotDetected); Benzodiazepines Screen,Urine Not Detected (NotDetected); Opiate Screen,Urine Not Detected (NotDetected); Oxycodone Screen, Urine Not Detected (NotDetected); Phencyclidine Screen,Urine Not Detected (NotDetected); Tricyclic Antidepressant,Urine Not Detected (NotDetected); Urn Cannabinoid Scrn Not Detected (NotDetected)
[2025-01-15] MEDS: LORazepam 1 MG TAB PO STA (13:46)
[2025-01-15 13:49] VITALS: BP 118/74; PULSE 87; RESP 16; TEMP 98
== END 2025-01-15 13:49 | disposition home or self-care (01) ==
LOC: EC 10:36
DX: F41.9 Anxiety disorder, unspecified (principal); Z87.891 Personal history of nicotine dependence
CPT/HCPCS: 80306; 82075; 99285